=== PATIENT | male | born 1960 | race Caucasian/White ===

== ENCOUNTER → 2019-02-28 | Day surgery (SDC) | payer OTHER ==
[~2019-02-28] VITALS: Ht 175.3 cm; Wt 83.0 kg
[~2019-02-28] MED LIST: AMLODIPINE BESYL5 MG PO; BREO ELLIPTA INH; CYCLOBENZAPRINE10 MG PO; IBUPROFEN400 MG PO; LIDOCAINE 1% W/EPINEPHRINE 20 ML VIAL INJ ONE; MELOXICAM7.5 MG PO; METOPROLOL TART25 MG PO; OMEPRAZOLE40 MG PO; PROAIR HFA INH8.5 GM INH; SIMVASTATIN20 MG PO
--- OUTSIDE RECORDS SUMMARY | 2019-02-28 08:07 | XMS REPORT ---
Author Author [facility] Address Unknown Phone Unavailable Care Team Providers Care Hotel General Manager Name Role Phone Unavailable Unavailable Problems This patient has no known problems. Allergies, Adverse Reactions, Alerts This patient has no known allergies or adverse reactions. Medications This patient has no known medications. Encounters Start Date/Time End Date/Time Encounter Type Admission Type Attending Clinicians Care Facility Care Department Encounter ID 2019-02-07 08:45:00 2019-02-07 08:45:00 Outpatient [facility] [id number] Results Test Description Test Time Test Comments Text Results Atomic Results Result Comments RAD, RIBS, LEFT 2019-02-16 19:31:00 Reason for exam:->chest wall painShould this be performed at the bedside?->No FINAL REPORT RAD, RIBS, LEFT \T\ PA CHEST, MIN 3 VIEWS CLINICAL INDICATION: chest wall pain COMPARISON: None FINDINGS: Single frontal view of the chest as well as frontal and oblique views of the left-sided ribs were obtained. There is blunting of the left lateral costophrenic angle which may be due to pleural thickening and/or small pleural effusion. There are linearly oriented opacities in the left lung base which may represent subsegmental and/or discoid atelectasis. There is no pneumothorax. There are surgical clips in the right hilum. The heart is normal size. There are nondisplaced fractures of the left eighth anterolateral and left ninth lateral ribs. There is lower cervical spinal fixation hardware. There are surgical screws in the lower lumbar spine. There is a mild lumbar levoscoliosis. There are surgical clips in the right lower quadrant. IMPRESSION: Nondisplaced fractures of the left eighth anterolateral and left ninth lateral ribs.Blunting of the left lateral costophrenic angle which may be due to pleural thickening and/or small pleural effusion.Mild left basilar subsegmental and/or discoid atelectasis. Signed: Lisa Arnold MDReport Verified Date/Time: 02/16/2019 19:31:51 , SPINE, LUMBAR, COMPLETE (MIN 4 VIEWS) 2018-08-08 02:31:00 Reason for exam:- >BACK PAINlower back pain after he tried to get up from couch at home tonight 2 hours agoShould this be performed at the bedside?->No FINAL REPORT CLINICAL HISTORY: BACK PAIN TECHNIQUE: Five views of the lumbar spine. COMPARISON: None IMPRESSION:Transitional anatomy with diminutive ribs at L1 and residual disc at S1-S2. Vertebral bodies were numbered in this convention for the purposes of this report. Postsurgical changes of an anterior management and lumbar spinal fusion of L4-5. No complicating features. Slight retrolisthesis of L3 on L4. Vertebral body heights are maintained. No evidence of acute fracture. Mild multilevel degenerative changes in the lumbar spine, worse at L3-4. Vascular calcifications. No evidence of a pars defect. Slight levocurvature of the lumbar spine centered at L3-4. Surgical clips to the right of the bowel for five disc space. Osteopenia. Signed: Nikolas Whaley Verified Date/Time: 08/08/2018 02:31:48 Reading Location: [facility] Transitional Reading Room
--- OUTSIDE RECORDS SUMMARY | 2019-02-28 08:07 | XMS REPORT | Clinical Summary ---
Author Author [facility] Address Unknown Phone Unavailable Care Team Providers Care Curator Name Role Phone Jasmin Trivedi MD PCP Allergies No Known Allergies Medications End Date Status Medication Sig Dispensed Refills Start Date Active atenolol (TENORMIN) 50 MG Take 50 mg by 0 tablet mouth daily. Active simvastatin (ZOCOR) 20 MG Take 20 mg by 0 tablet mouth nightly. Active omeprazole (PriLOSEC) 40 Take 40 mg by 0 MG capsule mouth daily. Active fluticasone-salmeterol Inhale 1 puff 0 (ADVAIR) 250-50 mcg/dose 2 (two) times DISKUS a day. Active albuterol (PROAIR Inhale 2 0 HFA,PROVENTIL puffs every 6 HFA,VENTOLIN HFA) 90 (six) hours mcg/actuation inhaler as needed for wheezing. Active Problems No known active problems Family History Medical History Relation Name Comments Cancer Maternal Grandmother Cancer Mother Relation Name Status Comments Maternal Grandmother lung Mother breast Social History Date Tobacco Use Types Packs/Day Years Used Former Smoker Comments: quit 15 yrs ago Drinks/Week oz/Week Comments Alcohol Use occational Yes Sex Assigned at Date Recorded Not on file Industry Job Start Date Occupation Not on file Not on file Not on file Travel End Travel History Travel Start No recent travel history available. Last Filed Vital Signs Not on file Plan of Treatment Not on file Results Not on fileafter 02/27/2018 Insurance Type Payer Benefit Subscriber ID Effective Phone Address Plan / Dates Group PPO BCBS BCBS xxxxxxxxxxxx 2016-P CHOICE resent PPO/JUAN MANUEL YBARRA PPO Advance Directives For more information, please contact: [phone] Patient Master Cosmetologist Explanation Type Date Recorded Advance Directives, Living Will and Medical Power of Communications Systems Engineer
--- OUTSIDE RECORDS SUMMARY | 2019-02-28 08:07 | XMS REPORT | Clinical Summary ---
Author Author [facility] Address Unknown Phone Unavailable Care Team Providers Care Technical Sales Representatives Name Role Phone Pcp, No PCP Unavailable Allergies No Known Allergies Medications End Date Status Medication Sig Dispensed Refills Start Date Active fluticasone-vilanterol Inhale 1 puff 0 (BREO ELLIPTA) 100-25 by mouth via mcg/dose DsDv inhaler daily. Active albuterol HFA (VENTOLIN Inhale 1 puff 0 HFA) 90 mcg/actuation by mouth via inhaler inhaler every 6 (six) hours as needed for Wheezing. Active omeprazole (PRILOSEC) 40 Take 40 mg by 0 MG capsule mouth daily. Active simvastatin (ZOCOR) 20 MG Take 20 mg by 0 tablet mouth nightly. Active bisoprolol-hydroCHLOROthi Take 1 tablet 0 azide (ZIAC) 2.5-6.25 mg by mouth per tablet daily. Active meloxicam (MOBIC) 7.5 MG Take 7.5 mg 0 tablet by mouth daily. Active amLODIPine (NORVASC) 5 MG Take 5 mg by 3 tablet mouth daily. 9 Active metoprolol (LOPRESSOR) 25 Take 25 mg by 0 MG tablet mouth 2 (two) 9 times daily. 08/18/2018 cyclobenzaprine Take 1 tablet 20 tablet 1 (FLEXERIL) 10 MG tablet (10 mg total) 9 by mouth 2 (two) times daily as needed for Muscle spasms for up to 10 days. 02/26/2019 acetaminophen-codeine Take 1-2 20 tablet 0 (TYLENOL #3) 300-30 mg tablets by 9 per tablet mouth every 6 (six) hours as needed for up to 10 days. Max Daily Amount: 8 tablets 02/26/2019 ibuprofen (ADVIL,MOTRIN) Take 1 tablet 40 tablet 0 800 MG tablet (800 mg 9 total) by mouth 3 (three) times daily for 10 days. 02/26/2019 cyclobenzaprine Take 1 tablet 20 tablet 0 (FLEXERIL) 10 MG tablet (10 mg total) 9 by mouth 2 (two) times daily as needed for Muscle spasms for up to 10 days. Active Problems Not on file Encounters Care Team Description Date Type Specialty Sil Rivers MD Fracture of two ribs, left, closed, initial encounter (Primary Dx) 02/16/2019 Emergency Emergency Medicine 02/16/2019 Travel [place] Dawn MD Acute right-sided low back pain with left-sided sciatica (Primary Dx); Lumbar strain, initial encounter; Lumbar disc disease with radiculopathy; Essential hypertension; History of gastroesophageal reflux (GERD); Chronic obstructive pulmonary disease, unspecified COPD type (HCC); Gait disturbance 08/08/2018 Emergency Emergency Medicine after 02/27/2018 Social History Date Tobacco Use Types Packs/Day Years Used Former Smoker Smokeless Tobacco: Never Used Alcohol Use Drinks/Week oz/Week Comments Yes occasionally Sex Assigned at Date Recorded Not on file Industry Job Start Date Occupation Not on file Not on file Not on file Travel End Travel History Travel Start No recent travel history available. Last Filed Vital Signs Time Taken Vital Sign Reading 02/16/2019 6:30 PM CDT Blood Pressure 141/80 02/16/2019 6:30 PM CDT Pulse 75 02/16/2019 6:30 PM CDT Temperature 36.8 C (98.3 F) 02/16/2019 6:30 PM CDT Respiratory Rate 22 02/16/2019 6:30 PM CDT Oxygen Saturation 95% - Inhaled Oxygen - Concentration 02/16/2019 6:30 PM CDT Weight 83 kg (183 lb) 02/16/2019 6:30 PM CDT Height 175.3 cm (5' 9") 02/16/2019 6:30 PM CDT Body Mass Index 27.02 Plan of Treatment Not on file Procedures Comments Procedure Name Priority Date/Time Associated Diagnosis XR RIBS WITH PA CHEST 3 STAT 02/16/2019 VIEWS MIN LEFT 7:02 PM CDT ORTHOPEDIC INJURY Routine 02/16/2019 TREATMENT 6:43 PM CDT XR SPINE LUMBAR COMPLETE STAT 08/08/2018 MIN 4 VIEWS 2:30 AM RADIATION CONTROL SPECIALIST after 02/27/2018 Results * XR ribs with pa chest 3 views min left (02/16/2019 7:02 PM CDT) Specimen Narrative Performed At FINAL REPORT [facility] RAD, RIBS, LEFT \\T\\ PA CHEST, MIN 3 VIEWS CLINICAL INDICATION:chest wall pain COMPARISON: None FINDINGS: Single frontal [...] eighth anterolateral and left ninth lateral ribs. Blunting of the left lateral costophrenic angle which may be due to pleural thickening and/or small pleural effusion. Mild left basilar subsegmental and/or discoid atelectasis. Signed: Lisa Arnold MD Report Verified Date/Time:02/16/2019 19:31:51 Procedure Note Interface, External Ris In - 02/16/2019 7:34 PM CDT FINAL REPORT RAD, RIBS, LEFT \\T\\ PA CHEST, MIN 3 VIEWS CLINICAL INDICATION: [...] eighth anterolateral and left ninth lateral ribs. Blunting of the left lateral costophrenic angle which may be due to pleural thickening and/or small pleural effusion. Mild left basilar subsegmental and/or discoid atelectasis. Signed: Lisa Arnold MD Report Verified Date/Time: 02/16/2019 19:31:51 Performing Organization Address City/State/Zipcode Phone Number [facility] * Orthopedic Injury (02/16/2019 6:43 PM CDT) Narrative Performed At Sil Rivers MD 02/18/20195:12 AM Orthopedic Injury Date/Time: 02/16/2019 8:00 PM Performed by: Sil Rivers MD Authorized by: Sil Rivers MD Consent: Verbal consent obtained. Risks and benefits: risks, benefits and alternatives were discussed Consent given by: patient Patient understanding: patient states understanding of the procedure being performed Injury location: rib Location details: left eighth rib and left ninth rib Injury type: fracture Pre-procedure neurovascular assessment: neurovascularly intact Manipulation performed: no Post-procedure neurovascular assessment: post-procedure neurovascularly intact Patient tolerance: Patient tolerated the procedure well with no immediate complications Immediate Post-Procedure Note Assistants to the procedure: None Pre-procedure diagnosis: rib fracture Post-procedure diagnosis: rib fractures Procedures Performed: Orthopedic Injury Specimens removed: None Estimated blood loss (mL): None Complications: None Type of anesthesia: None Grafts or Implants: None * XR spine lumbar complete 4 views min (08/08/2018 2:30 AM RADIATION CONTROL SPECIALIST) Specimen Narrative Performed At FINAL REPORT [facility] CLINICAL HISTORY: BACK PAIN TECHNIQUE: Five views of the lumbar spine. COMPARISON: None IMPRESSION: Transitional anatomy with diminutive ribs at L1 and [...] five disc space. Osteopenia. Signed: Nikolas Whaley MD Report Verified Date/Time:08/08/2018 02:31:48 Reading Location: [facility] B1 C013T Transitional Reading Room Procedure Note Interface, External Ris In - 08/08/2018 2:53 AM RADIATION CONTROL SPECIALIST FINAL REPORT CLINICAL HISTORY: BACK PAIN TECHNIQUE: Five views of the lumbar spine. COMPARISON: None IMPRESSION: Transitional anatomy with diminutive ribs at L1 and [...] five disc space. Osteopenia. Signed: Nikolas Whaley MD Report Verified Date/Time: 08/08/2018 02:31:48 Reading Location: [facility] B1 C013T Transitional Reading Room Performing Organization Address City/State/Zipcode Phone Number GE RIS after 02/27/2018 Insurance Payer Benefit Subscriber ID Type Phone Address Plan / Group [employer] xxxxxxxxxx [employer] E EXCHANGE
[2019-02-28 08:30] VITALS: BP 135/67
--- NOTE | 2019-02-28 08:30 | NUR ---
0830 pt in #10 Identifierx2, prepped for procedure. Loop recorder implant for arrhythmia. Dr Alcantar scheduled 10am.Alert oriented and appropriate, PERRLA, respirations even and unlabored to room air. Pulses x4 extremities .Cap fill brisk < 3 sec. Skin warm and dry integrity appears intact in general. Abdomen soft and supple. pt offered toileting, denies need to urinate or defecate. Personal affects with patient. No family at bedside.Has no bull driver. Pt verbalizes understanding of POC. Fall risk band on.Pt states fell recently and fall risk on, bed low and locked, side rails up x2 and call light at side. ds/rn
--- NOTE | 2019-03-05 20:41 | Operative Report ---
DATE OF PROCEDURE: 02/28/2019 SURGEON: Maninder Alcantar MD INDICATION FOR PROCEDURE: Palpitations, presyncope. PREPROCEDURE ASSESSMENT: Risks, benefits, and alternatives of treatment were explained to the patient. Informed consent was obtained as documented in the medical record. PROCEDURE IN DETAIL: The patient was brought to the lab aid holding area in a fasting state. Chest was prepped and draped in a sterile fashion. Fourth intercostal space was identified using manual palpation. Local anesthesia was achieved using lidocaine with 1% epinephrine, 20 mL total. LINQ implantable loop recorder device was implanted in the fourth intercostal space without any complications. Incision site was closed using Dermabond and dressing was applied. There were no immediate complications. The patient tolerated the procedure well. SPECIMEN REMOVED: None. ESTIMATED BLOOD LOSS: 1 mL. COMPLICATIONS: None. FINAL RECOMMENDATIONS: Follow up in 2 weeks post procedure. MD HELEN JavierP/MODL /[id number]
== END | disposition home or self-care (01) ==
LOC: CATH LAB 08:06
PROVIDERS: ATTEND Internal Medicine
DX: R00.2 Palpitations (principal); R55 Syncope and collapse; I10 Essential (primary) hypertension; R07.9 Chest pain, unspecified; E78.2 Mixed hyperlipidemia; I73.9 Peripheral vascular disease, unspecified; J44.9 Chronic obstructive pulmonary disease, unspecified
CPT/HCPCS: 33285; C1764

== ENCOUNTER → 2025-01-17 | Outpatient (REF) | payer MEDICARE ==
[~2025-01-17] MED LIST changes: +IOPAMIDOL 370 MG/ML 100 ML INFUS..BTL INJ ONE; -LIDOCAINE 1% W/EPINEPHRINE 20 ML VIAL INJ ONE; +METOPROLOL TARTRATE 25 MG TAB ONE; +NITROGLYCERIN 0.4 MG SUBL ONE; +SODIUM CHLORIDE 0.9% 100 ML ONE
[2025-01-17 11:44] LABS: EST GLOMERULAR FILTRATION RATE 99.0 ML/MIN (>=60)
== END ==
LOC: CT 10:54
PROVIDERS: ATTEND Internal Medicine Cardiovascular Disease
DX: R00.2 Palpitations (principal); I65.23 Occlusion and stenosis of bilateral carotid arteries; R00.0 Tachycardia, unspecified
CPT/HCPCS: 36415; 75574; 75580; 82565; 84520; J7050; Q9967

== ENCOUNTER 2025-01-31 05:47 | Day surgery (SDC) | payer MEDICARE ==
[2025-01-28 12:38] LABS: BASOPHILS % 1.0 % (0.0-1.0); EOSINOPHILS % 1.5 % (0.0-6.0); LYMPHOCYTES % 28.5 % (18.0-39.1); MONOCYTES % 6.1 % (4.4-11.3); NEUTROPHILS % 62.5 % (38.7-80.0); RED CELL DISTRIBUTION WIDTH 14.2 % (11.7-14.4)
[2025-01-28 13:05] LABS: EST GLOMERULAR FILTRATION RATE 98.0 ML/MIN (>=60)
[2025-01-31] VITALS (13 sets, daily range): BP systolic 140–154; BP diastolic 70–88; PULSE 56–67; RESP 9–17; TEMP 96.9–97.5; O2SAT 97–99
[~2025-01-31] VITALS: Ht 175.3 cm; Wt 83.0 kg
[~2025-01-31 05:47] MED LIST changes: +ASPIRIN81 MG PO; +CARVEDILOL3.125 MG PO; +CLOPIDOGREL75 MG PO; +DULOXETINE HCL30 MG PO; -IOPAMIDOL 370 MG/ML 100 ML INFUS..BTL INJ ONE; +LATANOPROST2.5 ML OP; +METFORMIN HCL500 MG PO; -METOPROLOL TARTRATE 25 MG TAB ONE; +MONTELUKAST SOD10 MG PO; -NITROGLYCERIN 0.4 MG SUBL ONE; +NITROGLYCERIN0.4 MG SL; +PROAIR RESPICL90 MCG; +PROTONIX20 MG PO; +ROSUVASTATIN CA10 MG PO; -SODIUM CHLORIDE 0.9% 100 ML ONE
[2025-01-31] MEDS ORDERED: LIDOCAINE HCL 2% LOCAL 20 ML VIAL ONE (06:26)
[2025-01-31] MEDS ORDERED: HEPARIN SOD (PORCINE) 1000 UNIT/ML 30ML ONE (06:26)
[2025-01-31] MEDS ORDERED: VERAPAMIL HCL 2.5 MG/ML 2 ML VIAL ONE (06:26)
[2025-01-31] MEDS ORDERED: IOPAMIDOL 370 MG/ML 100 ML INFUS..BTL INJ ONE ×2 (06:27→08:32)
[2025-01-31] MEDS ORDERED: NITROGLYCERIN/D5W 200 MCG/ML 250 ML ONE (06:27)
[2025-01-31] MEDS ORDERED: HEPARIN SOD/SOD CHLORIDE 2,000 ML ONE (06:27)
[2025-01-31] MEDS ORDERED: SODIUM CHLORIDE 0.9% 1000ML 1,000 ML ONE (06:27)
[2025-01-31] MEDS ORDERED: MIDAZOLAM HCL 2 MG/2 ML VIAL ONE (07:35)
[2025-01-31] MEDS ORDERED: FENTANYL CITRATE/PF 100MCG/2 ML INJ ONE (07:35)
[2025-01-31] MEDS ORDERED: ADENOSINE 3MG/1ML 30ML VIAL ONE (07:59)
[2025-01-31] MEDS ORDERED: SODIUM CHLORIDE 0.9% 250ML 0 ML ONE (07:59)
[2025-01-31] MEDS ORDERED: SODIUM CHLORIDE 0.9% 100 ML ONE (07:59)
== END 2025-01-31 11:45 | disposition home or self-care (01) ==
LOC: CATH LAB 05:47
PROVIDERS: ATTEND Internal Medicine Cardiovascular Disease
DX: I25.118 Atherosclerotic heart disease of native coronary artery with other forms of angina pectoris (principal); R94.39 Abnormal result of other cardiovascular function study; I65.23 Occlusion and stenosis of bilateral carotid arteries; I10 Essential (primary) hypertension; R00.2 Palpitations; R00.0 Tachycardia, unspecified; E11.9 Type 2 diabetes mellitus without complications; J44.9 Chronic obstructive pulmonary disease, unspecified; Z01.810 Encounter for preprocedural cardiovascular examination; Z01.812 Encounter for preprocedural laboratory examination; Z79.84 Long term (current) use of oral hypoglycemic drugs; Z79.02 Long term (current) use of antithrombotics/antiplatelets; Z79.82 Long term (current) use of aspirin; Z79.899 Other long term (current) drug therapy
CPT/HCPCS: 36415 ×2; 76937; 80053; 82948; 85025; 93005; 93458; 93571; 93572; C1769 ×2; C1887 ×2; C1894; J0153; J1644; J2003; J2250; J3010; J7030; J7050; Q9967; 93454; 99152; 99153